=== PATIENT | male | born 1980 | race Caucasian/White ===

== ENCOUNTER → 2022-10-06 | Outpatient (CLI) | payer OTHER ==
--- NOTE | 2022-10-06 14:36 | DIREP ---
PROCEDURE:XRAY SINUSES PARANASAL<3 VWS COMPARISON:None. INDICATIONS:Encounter for general adult medical examination without abnormal findings TECHNIQUE: Three views of the paranasal sinuses were performed. FINDINGS: MAXILLARY:Normal. No mucosal thickening or fluid level. ETHMOID:Normal. No mucosal thickening or fluid level. FRONTAL:Normal. No mucosal thickening or fluid level. SPHENOID:Normal. No mucosal thickening or fluid level. OTHER:Negative. CONCLUSION:The paranasal sinuses are clear. Dictated by: Jean-Claude Kurtz M.D. on 10/06/2022 at 02:35 PM
== END | disposition home or self-care (01) ==
LOC: RAD 12:26
PROVIDERS: ATTEND Nurse Practitioner
DX: Z00.00 Encounter for general adult medical examination without abnormal findings (principal)
CPT/HCPCS: 70220

== ENCOUNTER → 2023-02-09 | Outpatient (CLI) | payer OTHER ==
--- NOTE | 2023-02-09 19:52 | DIREP ---
PROCEDURE:CHEST 2 VIEWS COMPARISON:CR, XRAY CHEST SINGLE VW, 01/18/2020, 08:59 AM. INDICATIONS:Z00.00 HISTORY AND PHYSICAL EVALUATION FINDINGS: LUNGS/PLEURA:No focal consolidation, pleural effusion, or pneumothorax. VASCULATURE:Normal. Unremarkable pulmonary vasculature. CARDIAC:Normal. No cardiac silhouette abnormality or cardiomegaly. MEDIASTINUM:Normal. No visible mass or adenopathy. BONES:Degenerative change without evidence of acute osseus abnormality. OTHER:Negative. CONCLUSION: 1. No acute cardiopulmonary process. Dictated by: Jaquan Diaz MD on 02/09/2023 at 07:50 PM
--- NOTE | 2023-02-09 21:30 | DIREP ---
PROCEDURE:XRAY SHOULDER MIN 2 VWS-LT COMPARISON:[facility], CR, XRAY SHOULDER MIN 2 VWS-RT, 02/09/2023, 04:05 PM. [facility], CR, XRAY CHEST 2 VWS, 02/09/2023, 04:05 PM. INDICATIONS:Z00.00 HISTORY AND PHYSICAL EVALUATION FINDINGS: BONES:No fracture identified. JOINTS:AC and glenohumeral joint spaces are within normal limits. No evidence of dislocation. SOFT TISSUES:Normal. OTHER:Normal. CONCLUSION: 1. No fracture or evidence of joint dislocation. Dictated by: Jaquan Diaz MD on 02/09/2023 at 09:28 PM
--- NOTE | 2023-02-09 22:42 | DIREP ---
PROCEDURE:XRAY SHOULDER MIN 2 VWS-RT COMPARISON:[facility], TORY, XRAY CHEST 2 VWS, 02/09/2023, 04:05 PM. [facility], CR, XRAY SHOULDER MIN 2 VWS-LT, 02/09/2023, 04:05 PM. INDICATIONS:Z00.00 HISTORY AND PHYSICAL EVALUATION FINDINGS: BONES:Elevation of the right clavicle relative to the acromion and coracoid, consistent with grade 3 shoulder separation. No fracture noted. JOINTS:Otherwise normal. SOFT TISSUES:Normal. OTHER:Normal. CONCLUSION:Grade 3 shoulder separation. No fracture noted. Dictated by: Arcelia Lamb M.D. on 02/09/2023 at 10:40 PM
== END | disposition home or self-care (01) ==
LOC: RAD 15:54
PROVIDERS: ATTEND Internal Medicine
DX: S43.004A Unspecified dislocation of right shoulder joint, initial encounter (principal); M47.814 Spondylosis without myelopathy or radiculopathy, thoracic region; X58.XXXA Exposure to other specified factors, initial encounter; Y93.89 Activity, other specified; Y92.89 Other specified places as the place of occurrence of the external cause; Y92.9 Unspecified place or not applicable
CPT/HCPCS: 71046; 73030-LT; 73030-RT